=== PATIENT | female | born 2000 | race Hispanic/Latino ===

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

== ENCOUNTER 2022-08-16 23:20 | Emergency (ER) | payer OTHER ==
[~2022-08-16] VITALS: Ht 162.6 cm; Wt 60.0 kg
[~2022-08-16 23:20] MED LIST: ZOFRAN4 MG/TAB PO
[2022-08-16 23:28] VITALS: BP 120/76
[2022-08-16 23:30] VITALS: BP 116/71
[2022-08-16 23:45] VITALS: BP 112/58
[2022-08-17] VITALS: BP 106/61
[2022-08-17 00:08] LABS: HEMATOCRIT 37.4 % (37.0-47.0); HEMOGLOBIN 12.6 g/dl (12.0-16.0); IMMATURE GRANULOCYTES 0.2 % (0.0-5.0); MEAN CELL VOLUME 87.8 fL CALC (80.0-100.0); MEAN CORPUSCULAR HGB 29.6 pG CALC (26.0-32.0); MEAN CORPUSCULAR HGB CONC 33.7 g/dL CAL (32.0-36.0); NEUT# 10.2 thou/uL (2.00-7.15); RED BLOOD COUNT 4.26 mill/uL (4.20-5.60); RED CELL DISTRI WIDTH 12.7 % (11.5-15.5)
[2022-08-17 00:15] VITALS: BP 102/53
[2022-08-17 00:24] LABS: ALBUMIN 4.3 g/dL (3.2-5.0); ALKALINE PHOSPHATASE 66 u/l (38-126); BUN 8 mg/dL (7-17); BUN/CREATININE RATIO 8 (12-20 (CALC)); CARBON DIOXIDE 30 mmol/l (22-30); CHLORIDE 105 mmol/l (95-108); CREATININE 0.9 mg/dL (0.5-1.0); GFR FOR AFR.AMER. > 60 ML/MIN (>=60 (CALC)); GFR OTHER RACES > 60 ML/MIN (>=60 (CALC)); SGOT/AST 22 u/l (14-36); SODIUM 141 mmol/l (137-146); TOTAL PROTEIN 7.2 g/dL (6.3-8.2)
[2022-08-17 00:29] LABS: ANION GAP 10 (6-22 (CALC)); BILIRUBIN, TOTAL 0.3 mg/dL (0.0-1.4); POTASSIUM 4.3 mmol/l (3.5-5.1)
[2022-08-17 00:30] VITALS: BP 100/54
[2022-08-17 00:55] LABS: TSH, 3RD GENERATION 1.66 uIU/mL (0.47 - 4.68)
[2022-08-17] MEDS ORDERED: AMBIEN5 MG PO (01:01)
[2022-08-17 01:03] VITALS: BP 100/54
== END 2022-08-17 01:16 | disposition home or self-care (01) ==
LOC: ED 23:20
PROVIDERS: Family Medicine
DX: G47.00 Insomnia, unspecified (principal)

== ENCOUNTER 2022-10-15 01:07 | Emergency (ER) | payer OTHER ==
[2022-10-15] VITALS (7 sets, daily range): BP systolic 126–145; BP diastolic 79–97
[~2022-10-15] VITALS: Ht 162.6 cm; Wt 59.0 kg
[~2022-10-15 01:07] MED LIST changes: +AMBIEN5 MG PO
[2022-10-15 02:01] LABS: URINE BILIRUBIN - DIPSTICK NEGATIVE (NEGATIVE); URINE BLOOD DIPSTICK NEGATIVE (NEGATIVE); URINE COLOR YELLOW; URINE GLUCOSE - DIPSTICK NEGATIVE (NEGATIVE); URINE KETONE NEGATIVE (NEGATIVE); URINE LEUK ESTERASE NEGATIVE (NEGATIVE); URINE PH 5.5 (4.5-8.0); URINE PROTEIN - DIPSTICK NEGATIVE (NEG-TRACE); URINE SPECIFIC GRAVITY >=1.030; URINE UROBILINOGEN - DIPSTICK 0.2 E.U./dL (0.2)
[2022-10-15 02:02] LABS: BASO% 0.3 % (0-3); EOS% 1.9 % (0-8); HEMATOCRIT 42.6 % (37.0-47.0); HEMOGLOBIN 13.7 g/dl (12.0-16.0); IMMATURE GRANULOCYTES 0.1 % (0.0-5.0); LYMPH% 26.4 % (15-41); MEAN CELL VOLUME 89.7 fL CALC (80.0-100.0); MEAN CORPUSCULAR HGB 28.8 pG CALC (26.0-32.0); MEAN CORPUSCULAR HGB CONC 32.2 g/dL CAL (32.0-36.0); MONO% 6.4 % (2-13); NEUT# 5.93 thou/uL (2.00-7.15); NEUT% 64.9 % (42-76); RED BLOOD COUNT 4.75 mill/uL (4.20-5.60); RED CELL DISTRI WIDTH 13.1 % (11.5-15.5)
[2022-10-15 02:05] LABS: URINE NITRITE - DIPSTICK NEGATIVE (Negative)
[2022-10-15 02:14] LABS: ALBUMIN 4.7 g/dL (3.2-5.0); ALKALINE PHOSPHATASE 65 u/l (38-126); AMYLASE 96 u/l (30-110); ANION GAP 8 (6-22 (CALC)); BUN 16 mg/dL (7-17); BUN/CREATININE RATIO 20 (12-20 (CALC)); CARBON DIOXIDE 32 mmol/l (22-30); CHLORIDE 103 mmol/l (95-108); CREATININE 0.8 mg/dL (0.5-1.0); GFR FOR AFR.AMER. > 60 ML/MIN (>=60 (CALC)); GFR OTHER RACES > 60 ML/MIN (>=60 (CALC)); LIPASE 64 u/l (23-300); POTASSIUM 3.8 mmol/l (3.5-5.1); SGOT/AST 27 u/l (14-36); SODIUM 140 mmol/l (137-146)
[2022-10-15 02:23] LABS: BILIRUBIN, TOTAL 0.1 mg/dL (0.0-1.4)
[2022-10-15] MEDS ORDERED: MIRALAX17 GM PO (04:49)
== END 2022-10-15 05:07 | disposition home or self-care (01) ==
LOC: ED 01:07
PROVIDERS: Emergency Medicine
DX: K59.00 Constipation, unspecified (principal)
CPT/HCPCS: Q9967

== ENCOUNTER 2024-05-14 02:05 | Emergency (ER) | payer SELFPAY ==
[~2024-05-14] VITALS: Ht 162.6 cm; Wt 60.0 kg
[~2024-05-14 02:05] MED LIST changes: +MIRALAX17 GM PO
[2024-05-14] MEDS ORDERED: ASPIRIN 81 MG/TAB PO ONE (02:30)
[2024-05-14] MEDS ORDERED: ACETAMINOPHEN 500 MG TAB PO ONE (02:30)
[2024-05-14] MEDS ORDERED: IBUPROFEN 600 MG/TAB PO ONE (02:30)
[2024-05-14 02:43] VITALS: BP 110/65
[2024-05-14 02:45] VITALS: BP 107/66
[2024-05-14 02:59] LABS: BASO% 0.4 % (0-3); HEMATOCRIT 38.3 % (37.0-47.0); HEMOGLOBIN 12.6 g/dl (12.0-16.0); IMMATURE GRANULOCYTES 0.1 % (0.0-5.0); MEAN CELL VOLUME 89.3 fL CALC (80.0-100.0); MEAN CORPUSCULAR HGB 29.4 pG CALC (26.0-32.0); MEAN CORPUSCULAR HGB CONC 32.9 g/dL CAL (32.0-36.0); MONO% 6.2 % (2-13); NEUT# 6.15 thou/uL (2.00-7.15); NEUT% 62.3 % (42-76); RED BLOOD COUNT 4.29 mill/uL (4.20-5.60); RED CELL DISTRI WIDTH 13.7 % (11.5-15.5)
[2024-05-14 03:04] LABS: ALBUMIN 4.5 g/dL (3.2-5.0); ALKALINE PHOSPHATASE 70 u/l (38-126); BUN 15 mg/dL (7-17); BUN/CREATININE RATIO 14 (12-20 (CALC)); CHLORIDE 108 mmol/l (95-108); ESTIMATED GFR 82 ML/MIN (>=90 (CALC)); LIPASE 103 u/l (23-300); POTASSIUM 3.7 mmol/l (3.5-5.1); SGOT/AST 27 u/l (14-36); SODIUM 139 mmol/l (137-146); TOTAL PROTEIN 8.1 g/dL (6.3-8.2)
[2024-05-14 03:05] LABS: ANION GAP 11 (6-22 (CALC)); BILIRUBIN, TOTAL 0.4 mg/dL (0.02-1.3); CARBON DIOXIDE 24 mmol/l (22-30)
[2024-05-14 03:15] VITALS: BP 103/60
[2024-05-14 03:18] LABS: ACT PARTIAL THROMBO TIME 31.6 SECONDS (20.0-32.5)
[2024-05-14 03:19] LABS: PROTHROMBIN TIME 9.9 SECONDS (9.0-12.5)
[2024-05-14 03:27] LABS: D-DIMER 0.17 mg/L (0.19-0.60)
[2024-05-14 03:31] VITALS: BP 97/43
[2024-05-14 03:46] VITALS: BP 97/43
== END 2024-05-14 04:00 | disposition home or self-care (01) | DRG 313 ==
LOC: ED 02:05
PROVIDERS: Family Medicine
DX: R07.89 Other chest pain (principal)

== ENCOUNTER 2024-10-24 08:57 | Emergency (ER) | payer OTHER ==
[2024-10-24] VITALS (10 sets, daily range): BP systolic 94–112; BP diastolic 63–73
[~2024-10-24] VITALS: Ht 162.6 cm; Wt 65.0 kg
[2024-10-24] MEDS ORDERED: IBUPROFEN 600 MG/TAB PO ONE (09:15)
[2024-10-24] MEDS ORDERED: IBUPROFEN600 MG PO (11:01)
== END 2024-10-24 11:13 | disposition home or self-care (01) | DRG 103 ==
LOC: ED 08:57
DX: G44.209 Tension-type headache, unspecified, not intractable (principal)